=== PATIENT | female | born 1940 | race Caucasian/White ===

== ENCOUNTER 2023-09-29 12:51 | Emergency (ER) | payer MEDICARE, OTHER, SELFPAY ==
[2023-09-29 13:01] VITALS: BP 149/91
--- NOTE | 2023-09-29 14:59 | ED.GENMED ---
History of Present Illness
General
Chief Complaint: Dizziness
Time Seen by Provider: 09/29/23 14:58
Travel History
Have you had any contact with someone who has COVID-19?: No
Do you have any symptoms of coronavirus? Fever > 100 degrees, chills, cough, shortness of breath, sore throat, loss of taste or smell, muscle aches, or headache?: No
History of Present Illness
History of Present Illness:
HPI: Dizziness onset 3:30am while woke up to go to bathroom. While walking dog at 7:30am, describes more ataxia. Only has h/o macular degeneration. Takes baby aspirin twice a week. Got up off stretcher and walked w/o difficulty. Spontaneous
resolution of symtpoms. She may have had some questionable palpitations in the middle of the night. Overall she is significantly improved.
EXAM:
GENERAL: Well appearing in no distress
HEENT: Moist oral mucosa
CARDIOVASCULAR: No murmurs, normal heart rate and rhythm, No chest wall tenderness
PULMONARY: No respiratory distress, breath sounds are clear and equal
ABDOMEN: Soft with no peritoneal signs, no tenderness
NEUROLOGIC: Excellent strength all extremities, no coordination deficits, negative Richard-Hallpike maneuver, normal finger-nose testing bilaterally, I had her get up and walk and she was able to get off the stretcher without difficulty and walk
without any assistance
PSYCHIATRIC: Appropriate mental status, normal insight and judgement
EXTREMITIES: Nontender, no edema, moves all extremities equally
SKIN: No rash, no lesions
ED COURSE:
3 PM: I initially evaluated
NUMBER AND COMPLEXITY OF PROBLEMS ADDRESSED AT THE ENCOUNTER
� Chronic conditions affecting care: Macular degeneration
� Acute Exacerbation and/or Progression of Chronic Illness: This is an acute problem
� Differential Diagnosis includes: Dehydration, BPPV, nonspecific dizziness, labyrinthitis, [employer] event unlikely
AMOUNT AND/OR COMPLEXITY OF DATA TO BE REVIEWED AND ANALYZED
� I performed an independent evaluation of and my interpretation is:
EKG: Sinus 74, normal axis, no acute [facility] [place], no change from 01/25/2022
CT: CAT scan of the brain shows no acute abnormality but does show small chronic appearing lacunar infarct of the right basal ganglia
X-rays:
Laboratory Studies: CBC and chemistries unremarkable however of note the potassium was hemolyzed however creatinine is therefore did not repeat. She did have a potassium that was normal 1 month ago.
Other:
� Review of other/old records: Reviewed old records, blood work from last month was unremarkable
� Clinical information was obtained by an independent historian: Spoke to at bedside
� Prescriptions/Medications Considered but not given:
� Further testing considered but not performed:
RISK OF COMPLICATIONS AND/OR MORBIDITY OR MORTALITY OF PATIENT MANAGEMENT
� Social determinants of health affecting care: Lives at home
� Discussion with other providers: Discussed with Dr. Meyer at 3:20 PM; the patient does not have any orthostatic symptoms, he also recommends baby aspirin daily
� Escalation of care including admission/observation vs risk of discharge considered: The patient was given IV fluids, lab work is relatively unremarkable, I did discuss the CT findings with the patient. This does not appear to
be the cause of her symptoms. After IV fluids, she does report feeling improved. She states that she had not been drinking much fluid over the last couple of days.
Past History
Past History
ED Past Medical History: None; Negative CAD, HTN, Hypercholesterolemia, IDDM or NIDDM
ED Past Surgical History: None
Social History
Tobacco: Former smoker (in 20's)
Alcohol: None
Drug: None
Personal:
Living: with family
Family History
Family History: CAD
Phy Exam
Physical Exam
Physical Exam:
See HPI
Course
Orders/Labs/Results
Orders:
Orders
09/29/23 13:05
Electrocardiogram (*1) Urgent
Reason for Study: Vertigo / Dizzy
CT Head W/o Iv Contrast Urgent
Comment:
Reason For Exam: dizziness
EKG- Treatment ONCE
09/29/23 15:22
0.9% Sodium Chloride 1000 ml [Nss] 1,000 ml IV BOLUS
09/29/23 15:23
Complete Blood Count/With Diff Urgent
09/29/23 16:04
Basic Metabolic Panel Urgent
Abnormal Lab Results
09/29/23 09/29/23
15:23 16:04
Absolute Monos (auto) 0.8 H 10^3/uL
(0.1-0.6)
Monocytes % 9.4 H %
(1.7-9.3)
Chloride 111 H mmol/L
(98-107)
Carbon Dioxide 21 L mmol/L
(22-30)
Creatinine 0.5 L mg/dL
(0.6-1.0)
09/29/23 15:23
09/29/23 16:04
Vital Signs
Initial and Last Documented VS:
Initial Vital Signs
Temp Pulse Resp BP Pulse Ox
98.3 F 80 20 149/91 98
09/29/23 13:01 09/29/23 13:01 09/29/23 13:01 09/29/23 13:01 09/29/23 13:01
Last Documented Vital Signs
Temp Pulse Resp BP Pulse Ox
98.3 F 80 20 141/68 98
09/29/23 13:01 09/29/23 13:01 09/29/23 13:01 09/29/23 15:08 09/29/23 16:08
*Critical Care Note
Total Time (30-74mins, 75-104mins- exclusive of procedures): Not Applicable
ED Attending Note
-
Portions of this chart may have been created with voice recognition software.� Occasional wrong word or��sound alike� substitutions may have occurred due to the inherent limitations of voice recognition software.
Discharge Plan
Departure
Patient Disposition: Home (Routine Discharge)
Date of Disposition: 09/29/23
Time of Disposition: 16:59
Patient with high blood pressure during this ER visit?: Yes
Discharge Problem:
Dizziness
Instructions: Dizziness
Prescriptions:
No Action
vitamins A,C,[id number] [PreserVision AREDS] 1 CAP capsule
1 cap PO BID
Osteo Prime Mvi
2 tablets PO DAILY
cephalexin 500 MG capsule
500 mg PO QID Qty: 28 0RF
Referrals:
Anant Meyer MD [Active] - Follow up in 2-3 days
Robert Gómez MD [Family Provider] -
Activity Restrictions/Additional Instructions:
The cause of your dizziness is unclear. The CAT scan of your brain showed an old appearing stroke called a 'lacunar infarct' at the right basal ganglia. This does not appear to be the cause of your symptoms. I did speak to the neurologist and he
does recommend you take baby aspirin daily. Lacunar infarcts can commonly be seen with untreated high blood pressure and your blood pressure reading slightly high here. I recommend you follow-up your primary care doctor. I have also given the
contact information for local neurologist that I spoke to. Return here if worse.
Interventions
Interventions:
*Risk Screen - Suicide Last Done: 09/29/23 13:01
*General Assessment Last Done: 09/29/23 13:01
*Neglect/Abuse Screening Last Done: 09/29/23 15:12
ED- Fall Risk Assessment Last Done: 09/29/23 15:15
*ED COVID-19 Vaccine History Last Done: 09/29/23 15:12
ED- Neurological Assessment Last Done: 09/29/23 15:12
ED- Cardiac Assessment Last Done: 09/29/23 15:12
ED Swallowing Screen Last Done: 09/29/23 16:05
[2023-09-29 15:08] VITALS: BP 141/68
[2023-09-29 15:10] VITALS: BMI 24.0
[2023-09-29 15:33] LABS: % Basophils 0.6 % (0-2); % Eosinophils 0.9 % (0-6); % Immature Granulocytes 0.3 % (0-0.5); % Lymphocytes 23.8 % (20.5-51.1); % Monocytes 9.4 % (1.7-9.3); Absolute Basophils 0.1 10^3/uL (0-0.2); Absolute Eosinophils 0.1 10^3/uL (0-0.7); Absolute Lymphocytes 1.9 10^3/uL (1.2-3.4); Absolute Monocytes 0.8 10^3/uL (0.1-0.6); Absolute Neutrophils 5.2 10^3/uL (1.4-6.5); Hematocrit 38.4 % (37.0-47.0); Hemoglobin 12.8 g/dL (12.0-16.0); Mean Corp Hgb Conc. 33.3 g/dL (33.0-37.0); Mean Corpuscular Hgb 30.1 pg (27.0-31.0); Mean Corpuscular Volume 90.4 fL (81.0-99.0); Mean Platelet Volume 10.1 fL (7.4-10.4); Nucleated Red Blood Cells % 0 %; Platelet Count 296 10^3/uL (130-400); Red Blood Cell Count 4.25 10^6/uL (4.20-5.40); Red Cell Dist. Width 13.1 % (11.5-14.5)
[2023-09-29] MEDS: NSS 1000 IV (15:39)
[2023-09-29 16:00] VITALS: BP 132/67
[2023-09-29 16:48] LABS: Blood Urea Nitrogen 11 mg/dl (7-17); Calcium 9.1 mg/dl (8.4-10.2); Carbon Dioxide 21 mmol/L (22-30); Chloride 111 mmol/L (98-107); Estimated Creatinine Clearance 60 ml/min; Glucose 90 mg/dl (70-99); Sodium 136 mmol/L (135-145); eGFR > 60.00
== END 2023-09-29 17:45 | disposition home or self-care (01) ==
LOC: EMR 12:51
PROVIDERS: EMERGENCY PHYSICIAN Emergency Medicine; FAMILY PHYSICIAN Internal Medicine
DX: R42 Dizziness and giddiness (principal); R03.0 Elevated blood-pressure reading, without diagnosis of hypertension; Z87.891 Personal history of nicotine dependence; H35.30 Unspecified macular degeneration; Z82.49 Family history of ischemic heart disease and other diseases of the circulatory system
CPT/HCPCS: 99285; 96360; 70450; 80048; 85025; 93005

== ENCOUNTER → 2023-10-10 10:40 | Outpatient (REF) | payer MEDICARE, OTHER, SELFPAY | LOC: HWRCS 10:40 | PROVIDERS: ATTENDING PHYSICIAN Nuclear Medicine Nuclear Cardiology; FAMILY PHYSICIAN Internal Medicine | DX: I49.3 Ventricular premature depolarization (principal); R01.1 Cardiac murmur, unspecified; R29.818 Other symptoms and signs involving the nervous system | CPT/HCPCS: 93306 ==

== ENCOUNTER 2024-01-26 18:09 | Emergency (ER) | payer MEDICARE, OTHER, SELFPAY ==
[2024-01-26 18:19] VITALS: BP 133/85
[2024-01-26 20:20] LABS: Urine Albumin Trace (Neg - Trace); Urine Bilirubin Negative (Negative); Urine Character Clear (Clear); Urine Color Yellow; Urine Glucose Negative (Negative); Urine Ketone 1+ (Negative); Urine Leukocyte 2+ (Negative); Urine Nitrite Negative (Negative); Urine Occult Blood 3+ (Negative); Urine Urobilinogen Negative (Neg - 1+)
[2024-01-26 20:34] LABS: Urine White Cell 0-2 /HPF (0-5)
--- NOTE | 2024-01-26 20:48 | ED.GENMED ---
Addendum entered and electronically signed by Sudha Chamberlain PA-C 01/29/24 16:35:
urine 20k e coli; called patient and left message;
Original Note:
History of Present Illness
General
Chief Complaint: Urinary Symptoms
Source: patient and family
Exam Limitations: none
Time Seen by Provider: 01/26/24 19:50
Nursing documentation reviewed up to this point in time: agreed with
History of Present Illness
History of Present Illness:
84-year-old female with past medical history of previous UTI presenting to the emergency department today with concerns of earlier today feeling frequency and urgency though it is since resolved has no abdominal pain no fevers no additional concerns.
Past History
Past History
ED Past Medical History: None; Negative CAD, HTN, Hypercholesterolemia, IDDM or NIDDM
ED Past Surgical History: None
Social History
Tobacco: Former smoker (in 20's)
Alcohol: None
Drug: None
Personal:
Living: with family
Family History
Family History: CAD
Review of Systems
Review of Systems
Allergies reviewed?: Yes
All Other Systems: ROS reviewed and negative except as documented in HPI and ROS
Phy Exam
Physical Exam
Physical Exam:
GENERAL: Alert , in no apparent distress
EYE: pupils equal and reactive
NECK: Supple, no significant adenopathy.
ENT: o/p clr, mmm.
CARDIAC: Regular rate and rhythm .
LUNGS: Clear breath sounds bilaterally, no acute respiratory distress, no wheezes/rales/rhonchi
ABDOMEN: Soft, without focal tenderness, no r/g, no cvat
NEUROLOGICAL: Alert and oriented, no focal neuro deficits
SKIN: Warm and dry, skin intact.
MUSCULOSKELETAL: No edema, well perfused.
PSYCH: Normal and appropriate interaction.
Course
Orders/Labs/Results
Orders:
Orders
01/26/24 20:14
Urinalysis Reflex To Culture Urgent
Date Specimen was Collected: 01/26/24
Time Specimen was Collected: 19:45
Urine Microscopic Reflex Cult Urgent
Urine Culture Urgent
[place]OR[place] Source: U
Specimen Description:
Date Specimen was Collected: 01/26/24
Time Specimen was Collected: 19:45
Abnormal Lab Results
01/26/24
20:14
Urine Ketones 1+ A
(Negative)
Ur Occult Blood Reflex 3+ A
(Negative)
Leukocyte Esterase Rfl 2+ A
(Negative)
Urine RBC 7-10 A /HPF
(0-2)
Vital Signs
Initial and Last Documented VS:
Initial Vital Signs
Temp Pulse Resp BP Pulse Ox
98.0 F 83 18 133/85 97
01/26/24 18:19 01/26/24 18:19 01/26/24 18:19 01/26/24 18:19 01/26/24 18:19
Last Documented Vital Signs
Temp Pulse Resp BP Pulse Ox
98.0 F 83 18 133/85 97
01/26/24 18:19 01/26/24 18:19 01/26/24 18:19 01/26/24 18:19 01/26/24 18:19
MDM/Problems Addressed
MDM/Problems Addressed:
83-year-old female presenting to the emergency department today with concerns of earlier today having some frequency and urgency of urination. It is since resolved vital signs normal upon arrival denies abdominal pain denies fevers nausea vomiting.
On urinalysis patient does have some red blood cells but no white blood cells no signs consistent with urinary tract infection. The red blood cells was 7-10 she has had that in the past. She denies any additional symptoms. Does not appear to be
consistent with any life-threatening etiology no discomfort at this time making stone unlikely. Patient vies to outpatient follow-up for reassessment return precautions given.
*Critical Care Note
Total Time (30-74mins, 75-104mins- exclusive of procedures): Not Applicable
ED Attending Note
-
Portions of this chart may have been created with voice recognition software.� Occasional wrong word or��sound alike� substitutions may have occurred due to the inherent limitations of voice recognition software.
Discharge Plan
Departure
Patient Disposition: Home (Routine Discharge)
Date of Disposition: 01/26/24
Time of Disposition: 20:55
Patient with high blood pressure during this ER visit?: No
Condition: Good
Covid-19: Not Applicable
Discharge Problem:
Symptoms involving urinary system
Instructions: Blood in the Urine (Hematuria), Adult (DC)
Prescriptions:
No Action
vitamins A,C,[id number] [PreserVision AREDS] 1 CAP capsule
1 cap PO BID
Osteo Prime Mvi
2 tablets PO DAILY
cephalexin 500 MG capsule
500 mg PO QID Qty: 28 0RF
Referrals:
Robert Gómez MD [Family Provider] -
Jeb Mckeon MD [Active] - Follow up in 5-7 days
Activity Restrictions/Additional Instructions:
You came to the emergency department today with concerns of urinary symptoms. He had a small amount of blood in your urine please follow closely with urology. Return to the emergency department for any worsening, new or concerning symptoms.
Interventions
Interventions:
*Risk Screen - Suicide Last Done: 01/26/24 19:20
*General Assessment Last Done: 01/26/24 18:19
*Neglect/Abuse Screening Last Done: 01/26/24 19:19
*ED COVID-19 Vaccine History Last Done: 01/26/24 18:19
*Nursing Disposition Last Done: 01/26/24 21:15
ED-Female Genitourinary Assessment Last Done: 01/26/24 20:19
Discharge Date and Time
Discharge Date/Time: 01/26/24 21:16
Print Language: YAKUT
== END 2024-01-26 21:16 | disposition home or self-care (01) ==
LOC: EMR 18:09
PROVIDERS: Emergency Medicine; EMERGENCY PHYSICIAN Emergency Medicine; FAMILY PHYSICIAN Internal Medicine
DX: R35.0 Frequency of micturition (principal); R39.15 Urgency of urination; Z87.891 Personal history of nicotine dependence; Z87.440 Personal history of urinary (tract) infections
CPT/HCPCS: 99283; 81003; 81015; 87077; 87086; 87186

== ENCOUNTER → 2024-08-30 10:01 | Outpatient (REF) | payer MEDICARE, OTHER, SELFPAY ==
[2024-08-30 12:04] LABS: % Basophils 0.7 % (0-2); % Eosinophils 0.9 % (0-6); % Immature Granulocytes 0.3 % (0-0.5); % Lymphocytes 27.3 % (20.5-51.1); % Monocytes 11.1 % (1.7-9.3); % Neutrophils 59.7 % (42.2-75.2); Absolute Basophils 0.1 10^3/uL (0-0.2); Absolute Eosinophils 0.1 10^3/uL (0-0.7); Absolute Lymphocytes 2.1 10^3/uL (1.2-3.4); Absolute Monocytes 0.8 10^3/uL (0.1-0.6); Absolute Neutrophils 4.5 10^3/uL (1.4-6.5); Hematocrit 38.5 % (37.0-47.0); Hemoglobin 12.4 g/dL (12.0-16.0); Mean Corp Hgb Conc. 32.2 g/dL (33.0-37.0); Mean Corpuscular Volume 93.2 fL (81.0-99.0); Mean Platelet Volume 10.6 fL (7.4-10.4); Nucleated Red Blood Cells % 0 %; Platelet Count 265 10^3/uL (130-400); Red Blood Cell Count 4.13 10^6/uL (4.20-5.40); Red Cell Dist. Width 13.2 % (11.5-14.5); White Blood Cell Count 7.5 10^3/uL (4.8-10.8)
[2024-08-30 12:14] LABS: Urine Albumin Trace (Neg - Trace); Urine Bilirubin Negative (Negative); Urine Character Clear (Clear); Urine Color Yellow; Urine Glucose Negative (Negative); Urine Ketone Negative (Negative); Urine Leukocyte 2+ (Negative); Urine Nitrite Negative (Negative); Urine Occult Blood 1+ (Negative); Urine Urobilinogen Negative (Neg - 1+)
[2024-08-30 12:30] LABS: Urine Bacteria Moderate (Negative); Urine Squamous Cell 0-2 /LPF (Few); Urine Urothelial Cell 0-2 /LPF (FEW); Urine White Cell >100 /HPF (0-5)
[2024-08-30 12:31] LABS: Urine Red Blood Cell 0-2 /HPF (0-2)
[2024-08-30 12:37] LABS: ALT (SGPT) 18 U/L (0-35); AST (SGOT) 32 U/L (14-36); Albumin 4.5 g/dl (3.5-5.0); Alkaline Phosphatase 105 U/L (38-126); Blood Urea Nitrogen 17 mg/dl (7-17); Calcium 9.7 mg/dl (8.4-10.2); Carbon Dioxide 24 mmol/L (22-30); Chloride 102 mmol/L (98-107); Glucose 93 mg/dl (70-99); HDL Cholesterol 76 mg/dl; LDL Cholesterol, Calculated 108 mg/dl; Potassium 4.6 mmol/L (3.5-5.1); Sodium 136 mmol/L (135-145); Total Bilirubin 0.7 mg/dl (0.2-1.3); Total Cholesterol 197 mg/dl (50-199); Total Protein 7.4 g/dl (6.3-8.2); Triglyceride 66 mg/dl (10-149); Very Low Density Lipoprotein 13 mg/dl (0-30); eGFR > 60.00
[2024-08-30 12:57] LABS: TSH 1.26 uIU/ml (0.47-4.68)
== END ==
LOC: HWLAB 10:01
PROVIDERS: ATTENDING PHYSICIAN Internal Medicine
DX: E78.5 Hyperlipidemia, unspecified (principal); R31.9 Hematuria, unspecified
CPT/HCPCS: 36415; 80053; 80061; 81003; 81015; 84443; 85025

== ENCOUNTER → 2024-09-24 09:49 | Outpatient (REF) | payer MEDICARE, OTHER, SELFPAY ==
[2024-09-24 16:15] LABS: Urine Albumin Negative (Neg - Trace); Urine Bilirubin Negative (Negative); Urine Character Clear (Clear); Urine Color Yellow; Urine Glucose Negative (Negative); Urine Ketone Negative (Negative); Urine Leukocyte Negative (Negative); Urine Nitrite Negative (Negative); Urine Occult Blood Negative (Negative); Urine Specific Gravity 1.015 (<1.030); Urine Urobilinogen Negative (Neg - 1+); Urine pH 6.5 (5.0-9.0)
== END ==
LOC: HWLAB 09:49
PROVIDERS: ATTENDING PHYSICIAN Internal Medicine
DX: N39.0 Urinary tract infection, site not specified (principal)
CPT/HCPCS: 81003; 87086

== ENCOUNTER 2025-04-15 17:18 | Emergency (ER) | payer MEDICARE, OTHER, SELFPAY ==
[2025-04-15 17:22] VITALS: BP 137/78
--- NOTE | 2025-04-15 20:06 | ED.MUSCINJ ---
HPI-Injury
General
Chief Complaint: Musculo-Skeletal Complaint
Source: patient
Exam Limitations: none
Time Seen by Provider: 04/15/25 19:35
Nursing documentation reviewed up to this point in time: agreed with
History of Present Illness-Injury
Is this injury a work related problem?: No
Is pt an associate of [facility]?: No
Initial Injury comments:
Patient to ED with cmoplaint of pain to right campos. Reports pain is sharp, intermittent. At times pain radiates up to buttocks. Symptms started a few weeks ago after she hurt her left knee. States she was favoring LLE and feels that this caused
the pain on the right Denies fever/chills, recent illness. No n/v/d. No trauma to RLE. Brought to ED by spouse for eval.
Past History
Past History
ED Past Medical History: None; Negative CAD, HTN, Hypercholesterolemia, IDDM or NIDDM
ED Past Surgical History: None
Social History
Tobacco: Former smoker (in 20's)
Alcohol: None
Drug: None
Personal:
Living: with family
Family History
Family History: CAD
Review of Systems
Review of Systems
Allergies reviewed?: Yes
All Other Systems: ROS reviewed and negative except as documented in HPI and ROS
Constitutional: Reports no symptoms
EENT: Reports no symptoms
Respiratory: Reports no symptoms
Cardiac: Reports no symptoms
ABD/GI: Reports no symptoms
: Reports no symptoms
Musculoskeletal: Reports joint pain (pain to right campos)
Skin: Reports no symptoms
Neurological: Reports no symptoms
Psychiatric: Reports no symptoms
Musculoskeletal Injury Exam
Musculoskeletal Injury Exam
Right campos:
Pain with Movement?: Moderate
Tender to palpation?: Mild
Soft tissue swelling?: None
External deformity and angulation?: None
Joint effusion?: None
Contusion?: None
Hematoma-local bleeding into tissue?: None
Strain- Sprain- Tear (Connective tissue injury)?: None
Crepitus with movement?: No
Joint instability?: No
Malalignment/deformity?: No
Range of motion: Full
Distal skin color and temperature: normal-warm & good color
Capillary Refill: normal
Normal distal neurovascular exam?: Yes
Phy Exam
General Physical Exam
General Presentation: well appearing and no apparent distress
General age: appears stated age
General Skin: warm and dry
General Habitus: normal
General Mental: alert
General Hydration: appears well hydrated
Musculoskeletal Exam
Musculoskeletal Exam: full ROM and neuro vasc intact
Skin Exam
Skin Exam: normal color, warm/dry and no rash
Psychiatric Exam
Psychiatric Exam: normal mood/affect
Injury Course
Orders/Labs/Results
Orders:
Orders
04/15/25 20:05
Tibia/Fibula, Right 2 View [CR Leg Tibia/fibula Right 2 Vw] Urgent
Comment:
Reason For Exam: pain
04/15/25 21:38
Prednisone [Deltasone] 40 mg PO NOW STA
*Radiology
Radiology exam reviewed: radiology read reviewed
*Pulse Oximetry
SaO2: 96
Oxygen Mode of Delivery: Room air
Patient hypoxic: no
*Critical Care Note
Total Time (30-74mins, 75-104mins- exclusive of procedures): Not Applicable
ED Attending Note
-
Portions of this chart may have been created with voice recognition software.� Occasional wrong word or��sound alike� substitutions may have occurred due to the inherent limitations of voice recognition software.
Discharge Plan
Departure
Patient Disposition: Home (Routine Discharge)
Date of Disposition: 04/15/25
Time of Disposition: 21:38
Patient with high blood pressure during this ER visit?: No
Condition: Good
Covid-19: Not Applicable
Discharge Problem:
Leg pain
Instructions: Muscle and Bone Pain (DC), Using Cold for Pain
Prescriptions:
New
prednisone 10 mg Tablet
See Rx Instructions .ROUTE .COMPLEX Qty: 30 0RF
Rx Instructions:
Take By Mouth:
40 mg daily x3 days, 30 mg daily x3 days,
20 mg daily x3 days, 10 mg daily x3 days.
No Action
vitamins A,C,[id number] [PreserVision AREDS] 1 CAP capsule
1 cap PO BID
Osteo Prime Mvi
2 tablets PO DAILY
cephalexin 500 MG capsule
500 mg PO QID Qty: 28 0RF
cephalexin 500 mg capsule
500 mg PO QID Qty: 28 0RF
Referrals:
Jevon Cartagena MD [Active, Orthopedics]
Referral Note: Follow up if your symptoms do not improve over the next week.
Robert Gómez MD [Family Provider, Internal Medicine] - Follow up in 2-3 days
Interventions
Interventions:
*Risk Screen - Suicide Last Done: 04/15/25 17:22
*General Assessment Last Done: 04/15/25 17:22
*Neglect/Abuse Screening Last Done: 04/15/25 22:10
*ED- Fall Risk Assessment Last Done: 04/15/25 19:39
*ED COVID-19 Vaccine History Last Done: 04/15/25 19:39
*Nursing Disposition Last Done: 04/15/25 22:09
ED-Musculoskeletal Assessment Last Done: 04/15/25 19:39
Discharge Date and Time
Discharge Date/Time: 04/15/25 22:00
Print Language: [place]
[2025-04-15] MEDS: DELTASONE 40 MG PO (21:56)
== END 2025-04-15 22:00 | disposition home or self-care (01) ==
LOC: EMR 17:18
PROVIDERS: EMERGENCY PHYSICIAN Emergency Medicine; FAMILY PHYSICIAN Internal Medicine
DX: M79.661 Pain in right lower leg (principal); Z87.891 Personal history of nicotine dependence
CPT/HCPCS: 99283; 73590